=== PATIENT | female | born 1965 | race African-American/Black ===

== ENCOUNTER 2018-10-01 07:10 | Outpatient (CLI) | payer OTHER ==
[2018-10-01 07:30] LABS: Hematocrit 37.6 % (30.3-42.9); Hemoglobin 12.8 gm/dl (10.1-14.3); Mean Corpuscular HGB Conc 34 % (30-34); Mean Corpuscular Volume 93 fl (79-97); Platelet Count 270 K/mm3 (140-440); Red Blood Count 4.05 M/mm3 (3.65-5.03); Red Cell Distribution Width 13.9 % (13.2-15.2)
[2018-10-01 07:43] LABS: ABG Base Excess 0.3 mmol/L (-2.0-3.0); ABG HCO3 25.3 mmol/L (20.0-26.0); ABG Methemoglobin 0.6 % (0.0-1.5); ABG Oxygen Saturation 96.9 % (95.0-99.0); ABG PCO2 42.1 mm Hg; ABG PH 7.397 pH Units (7.350-7.450); ABG PO2 88.6 mm Hg (80.0-90.0)
[2018-10-01 07:46] LABS: Alanine Aminotransferase 30 units/L (7-56); Albumin 3.9 g/dL (3.9-5); BUN/Creatinine Ratio 27; Blood Urea Nitrogen 16 mg/dL (7-17); Chol/HDL Ratio 2.93 %; HDL Cholesterol 60 mg/dL (40-59); Hemolysis Index 0; LDL Cholesterol,Direct 119 mg/dL (50-130)
--- NOTE | 2018-10-01 08:35 | XRay Report ---
CHEST 2 VIEWS INDICATION: CHRONIC COUGH. COMPARISON: FINDINGS: Support devices: None. Heart: Within normal limits. Lungs/pleura: No acute air space or interstitial disease. No pneumothorax. Additional findings: None. IMPRESSION: Normal chest x-ray. Signer Name: Farhad Dawson Jr, MD Signed: 10/01/2018 8:31 AM Workstation Name: [id number]
--- NOTE | 2018-10-01 09:27 | Fluoroscopy Report ---
UPPER GI HISTORY: K21.9 GASTRO-ESOPHAGEAL REFLUX. TECHNIQUE: Single and double contrast barium technique utilized to evaluate the esophagus, stomach, and duodenal C-loop. FINDINGS: To begin the exam, swallowing was evaluated in the lateral position under direct fluorosco py. Swallowing was normal. No mucosal irregularity, mass, mass effect, or critical stenosis. There were no abnormal tertiary c ontractions as seen with dysmotility. No gastroesophageal reflux. IMPRESSION: Unremarkable exam. Fluoroscopic time: 1 minute Number of fluoroscopic images: 27 Signer Name: Farhad Dawson Jr, MD Signed: 10/01/2018 9:23 AM Workstation Name: [id number]
== END 2018-10-01 07:11 | disposition home or self-care (01) ==
LOC: FLUORO 07:10
PROVIDERS: ATTEND Internal Medicine
DX: K21.9 Gastro-esophageal reflux disease without esophagitis (principal); R91.1 Solitary pulmonary nodule; R06.02 Shortness of breath; I10 Essential (primary) hypertension
CPT/HCPCS: 36415; 71046; 74247; 80053; 80061; 82785; 82803; 84436; 84443; 85027